=== PATIENT | female | born 1945 | race Caucasian/White ===

== ENCOUNTER → 2017-09-25 | Outpatient (CLI) | payer OTHER | LOC: FIMAGING 12:27 | PROVIDERS: ATTEND Internal Medicine | DX: Z12.31 Encounter for screening mammogram for malignant neoplasm of breast (principal) | CPT/HCPCS: G0202 ==

== ENCOUNTER → 2018-10-05 | Outpatient (CLI) | payer OTHER | LOC: FIMAGING 11:25 | PROVIDERS: ATTEND Neurological Surgery | DX: Z98.1 Arthrodesis status (principal); M41.86 Other forms of scoliosis, lumbar region; M43.16 Spondylolisthesis, lumbar region; M51.36 Other intervertebral disc degeneration, lumbar region ==

== ENCOUNTER → 2018-11-04 | Outpatient (CLI) | payer OTHER | LOC: BMCIMAGING 09:11 | PROVIDERS: ATTEND Internal Medicine | DX: Z12.31 Encounter for screening mammogram for malignant neoplasm of breast (principal); Z80.3 Family history of malignant neoplasm of breast ==

== ENCOUNTER 2018-12-01 05:04 | Inpatient (IN) | payer OTHER ==
[2018-12-01] MEDS ORDERED: morphINE SR 15 MG TAB PO ONE (05:59)
[2018-12-01] MEDS ORDERED: ceFAZolin 2 GM/DEXTROSE 100 ML IV ONE (05:59)
[2018-12-01] MEDS ORDERED: morphINE PF 0.2 MG in SYRINGE INTRATHECAL 1 SYR IT ONE (05:59)
[2018-12-01] MEDS ORDERED: ACETAMINOPHEN 500 MG TAB PO ONE (05:59)
[2018-12-01] MEDS ORDERED: GABAPENTIN 300 MG CAP PO ONE (05:59)
[2018-12-01] MEDS ORDERED: LIDOCAINE 1% 2 ML INJ ID PRN (06:02)
[2018-12-01] MEDS ORDERED: LR 1,000 ML IV ONE (06:02)
[2018-12-01] MEDS ORDERED: LIDOCAINE 1% 2 ML INJ ONE (06:06)
--- NOTE | 2018-12-01 06:19 | PDHPUP ---
History & Physical Update H&P update statement: This history and physical update is based on an assessment of the patient which was completed after admission or registration (within 24 hours), but prior to the surgery/procedure. H&P update: H&P reviewed & patient examined, no change in patient's condition since H&P completed (Consents signed and site marked. All questions answered. We will plan for right sided TLIFs for right sided leg pain. )
[2018-12-01] MEDS ORDERED: BACITRACIN 50,000 UNITS/10 ML SYR IRR ONE (06:45)
[2018-12-01] MEDS ORDERED: THROMBIN (BOVINE) 20,000 UNIT VIAL TP ONE (06:45)
[2018-12-01] MEDS ORDERED: CHLORHEXIDINE GLUC HIBICLENS 118 ML BTL TP ONE (06:45)
[2018-12-01] MEDS ORDERED: BUPIVACAINE 0.25% 30 ML SDV ONE (06:45)
[2018-12-01] MEDS ORDERED: CITRATE DEXTROSE SOLN 500 ML BAG ONE (06:46)
[2018-12-01] MEDS ORDERED: EPINEPHrine 1 MG/ML INJ ONE (06:46)
[2018-12-01] MEDS ORDERED: MIDAZOLAM 2 MG/2 ML VIAL IVP ONE (06:53)
--- NOTE | 2018-12-01 06:53 | PDANEPAE ---
ANE History of Present Illness L2/3/4 TLIF with instrumentation, HW removal ANE Past Medical History - Cardiovascular History Hx Hypertension: No Hx Arrhythmias: No Hx Chest Pain: No Hx Coronary Artery / Peripheral Vascular Disease: No Hx CHF / Valvular Disease: No Hx Palpitations: No Cardiovascular History Comment: BP tends to run low - Pulmonary History Hx COPD: No Hx Asthma/Reactive Airway Disease: No Hx Recent Upper Respiratory Infection: No Hx Oxygen in Use at Home: No Hx Sleep Apnea: Yes Sleep Apnea Screening Result - Last Documented: Positive Pulmonary History Comment: MAXIMILIAN - Neurologic History Hx Cerebrovascular Accident: No Hx Seizures: No Hx Dementia: No - Endocrine History Hx Diabetes: No - Renal History Hx Renal Disorders: No - Liver History Hx Hepatic Disorders: No - Neurological & Psychiatric Hx Hx Neurological and Psychiatric Disorders: Yes Neurological / Psychiatric History Comment: numbness to R leg R/T back issues - Cancer History Hx Cancer: No - Congenital Disorder History Hx Congenital Disorders: Yes Congenital History Comment: glaucoma - GI History GERD: mild Hx Gastrointestinal Disorders: Yes Gastrointestinal History Comment: acid reflux - Other Health History Other Health History: none - Chronic Pain History Chronic Pain: No - Surgical History Prior Surgeries: none in last 5 yrs. 2008 spinal sx ANE Review of Systems Review of systems is: negative Review of Systems: - Exercise capacity METS (RN): 4 METS ANE Patient History - Allergies Allergies/Adverse Reactions: No Known Allergies Allergy (Verified 11/09/18 14:48) - Home Medications Home medications: home medication list seen and reviewed Home Medications: Acetaminophen [Tylenol ES 500 mg (*)] 500 mg PO BID 11/02/18 [Last Taken 21:00] Acetamn/Diphenhydramine 500/25 [Tylenol PM (*)] 0.5 each PO HS 11/02/18 [Last Taken 11/30/18 21:00] Calcium Carbonate [Calcium] 1,000 mg PO DAILY 11/02/18 [Last Taken 11/19/18] Cholecalciferol Vit D3 [Vitamin D3 (*)] 1,000 units PO DAILY 11/02/18 [Last Taken 11/19/18] Herbals/Supplements -Info Only 1 ea PO DAILY 11/02/18 [Last Taken 11/19/18] Meloxicam [Mobic 15 mg] 15 mg PO HS 11/02/18 [Last Taken 11/18/18] Multivitamins [Multivitamin (*)] 1 each PO DAILY 11/02/18 [Last Taken 11/19/18] Ranitidine HCl [Zantac] 150 mg PO BID 11/02/18 [Last Taken 12/01/18 03:45] - NPO status NPO Status: no food or drink >8 hours NPO Since - Liquids (Date): 11/30/18 NPO Since - Liquids (Time): 21:00 NPO Since - Solids (Date): 11/30/18 NPO Since - Solids (Time): 20:30 - Anes Hx Anes Hx: no prior problems - Smoking Hx Smoking Status: Never smoked - Family Anes Hx Family Anes Hx: none Family Hx Anesthesia Complications: none ANE Labs/Vital Signs - Vital Signs Vital Signs: reviewed preoperatively; see RN documention for details Blood Pressure: 119/71 Heart Rate: 78 Respiratory Rate: 16 O2 Sat (%): 93 Height: 167.64 cm Weight: 68.039 kg ANE Physical Exam - Airway Neck exam: FROM Mallampati Score: Class 1 Mouth exam: normal dental/mouth exam - Pulmonary Pulmonary: no respiratory distress - Cardiovascular Cardiovascular: regular rate and rhythym - ASA Status ASA Status: II ANE Anesthesia Plan Anesthesia Plan: general endotracheal anesthesia
[2018-12-01] MEDS ORDERED: MIDAZOLAM 2 MG/2 ML VIAL ONE (07:02)
[2018-12-01] MEDS ORDERED: DEXAMETHASONE 4 MG/ML VIAL ONE (07:10)
[2018-12-01] MEDS ORDERED: LIDOCAINE 2% 100 MG/5 ML SYR ONE (07:10)
[2018-12-01] MEDS ORDERED: ROCURONIUM 50 MG/5 ML VIAL ONE (07:10)
[2018-12-01] MEDS ORDERED: HYDROmorphONE/DILAUDID 2 MG/ML INJ ONE (07:10)
[2018-12-01] MEDS ORDERED: ONDANSETRON 4 MG/2 ML VIAL ONE ×2 (07:10→12:17)
[2018-12-01] MEDS ORDERED: fentaNYL 100 MCG/2 ML INJ ONE (07:11)
[2018-12-01] MEDS ORDERED: PROPOFOL/EMULSION 500 MG/50 ML BOTTLE IV ONE (07:11)
[2018-12-01] MEDS ORDERED: PROPOFOL 200 MG/20 ML VIAL ONE (07:11)
[2018-12-01] MEDS ORDERED: REMIFENTANIL HCL 1 MG VIAL ONE (07:11)
[2018-12-01] MEDS ORDERED: diphenhydrAMINE 25 MG CAP PO PRN (07:33)
[2018-12-01] MEDS ORDERED: METHOCARBAMOL 750 MG TAB PO PRN (07:33)
[2018-12-01] MEDS ORDERED: MAGNESIUM HYDROXIDE 30 ML UDCUP PO PRN (07:33)
[2018-12-01] MEDS ORDERED: POLYETHYLENE GLYCOL 3350 17 GM PKT PO PRN (07:33)
[2018-12-01] MEDS ORDERED: LACTULOSE 20 GM/30 ML UDCUP PO PRN (07:33)
[2018-12-01] MEDS ORDERED: BISACODYL 10 MG SUPP PR PRN (07:33)
[2018-12-01] MEDS ORDERED: ONDANSETRON DISINTEGRATING 4 MG TAB PO PRN (07:33)
[2018-12-01] MEDS ORDERED: ePHEDrine SULFATE 25 MG/5 ML SYR ONE (07:53)
[2018-12-01] MEDS ORDERED: NON-FORMULARY NEW DRUG (Ranitidine Hcl [Zantac] 150 MG) PO SCH (09:00)
[2018-12-01] MEDS ORDERED: PROMETHAZINE HCL 25 MG/ML INJ IVP PRN (10:51)
[2018-12-01] MEDS ORDERED: NALOXONE HCL 0.4 MG/ML INJ IVP PRN ×2 (10:51→12:30)
[2018-12-01] MEDS ORDERED: DIAZEPAM 5 MG/ML 1 ML SYR IVP PRN (10:51)
[2018-12-01] MEDS ORDERED: fentaNYL 100 MCG/2 ML INJ IVP PRN (10:51)
[2018-12-01] MEDS ORDERED: HYDROmorphONE/DILAUDID 2 MG/ML INJ IVP PRN (10:51)
[2018-12-01] MEDS ORDERED: LABETALOL HCL 5 MG/ML 20 ML MDV IVP PRN (10:51)
[2018-12-01] MEDS ORDERED: oxyCODONE IR 5 MG TAB PO PRN (10:51)
[2018-12-01] MEDS ORDERED: MEPERIDINE 25 MG/0.5 ML AMP IVP PRN (10:51)
[2018-12-01] MEDS ORDERED: DEXAMETHASONE 4 MG/ML VIAL IVP PRN (10:51)
--- NOTE | 2018-12-01 10:51 | POSTANESTH ---
Post Anesthetic Evaluation Cardiovascular Status: Normal, Stable, Similar to Pre-Op Cond Respiratory Status: Normal, Stable, Similar to Pre-op Cond. Level of Consciousness/Mental Status: Can Participate in Eval, Mildly Sleepy, Arousable Pain Control: Adequate, Prn Tx Ordered Nausea/Vomiting Control: Adequate, Prn Tx Ordered Complications Possibly Related to Anesthesia: None Noted
--- NOTE | 2018-12-01 11:35 | PDMN ---
Medical Necessity Medical necessity: [facility] S820 Lumbaar Fusion, 3 days: 73 yo s/p L2/3/4 TLIF, L2-4 Lum [place], Posterior Fusion, L4/5 Hardware Exploration/Removal, IP Only
[2018-12-01] MEDS: ONDANSETRON 4 MG/2 ML VIAL IVP PRN ×4 (12:20→23:39)
--- NOTE | 2018-12-01 12:28 | POSTOPPROG ---
Post Op Note Date of Operation: 12/01/18 Surgeon: Davon Gaines [employer] Dispatcher: Shoshana Cooper NP Anesthesiologist: Kevin Anesthesia: GET(General Endotracheal) Pre-op Diagnosis: Lumbar stenosis Procedure: L4-5 hardware exploration/removal with L2-3 laminectomy and TLIF L2-3 , L3-4 Inf/Abcess present in the surg proc area at time of surgery?: No Depth: Deep Incisional (Fascial) EBL: 100-500 Total fluids administered: see anesthesia Complications: none Drains: James Mancia Date of Surgery: 12/01/18 Post Op Day: 0 Assessment/Plan: Assessment: 73 yr old s/p L4-5 hardware exploration/removal with TLIF L2-3, L3-4 , PSF L2-4 Plan: -Admit med surg -Pain management, patient received IT duramorph intra op -ARIE to bulb suction -PT/OT -Post op xrays in am -Please call neurosurg with questions/concerns Subjective: waking up in pacu Objective: waking up in pacu PERRLA No facial droop MAEx4 5/5 ble, bue Sensation intact to light touch BLE ARIE patent Dressing CDI Appropriate Neuro Check Frequency Ordered: Yes
[2018-12-01] MEDS: SENNOSIDES/DOCUSATE SODIUM TAB PO SCH ×2 (14:47→22:42)
[2018-12-01] MEDS: FAMOTIDINE 20 MG TAB PO SCH ×2 (14:47→22:42)
[2018-12-01] MEDS: ACETAMINOPHEN 500 MG TAB PO SCH ×2 (14:52→22:41)
--- NOTE | 2018-12-01 15:26 | GOP ---
[f rep st] OPERATIVE REPORT DATE OF OPERATION: 12/01/2018 SURGEON: Davon Gaines MD BROACHING MACHINE REPAIRER: Shoshana Cooper NP. ANESTHESIA: General. PREOPERATIVE DIAGNOSIS: 1. L2-L3, L3-L4 severe spondylosis with history of a prior fusion L4-L5. 2. Severe spinal stenosis L3-L4. 3. Treatment refractory to nonoperative intervention. 4. Right lower extremity radiculopathy. POSTOPERATIVE DIAGNOSIS: 1. L2-L3, L3-L4 severe spondylosis with history of a prior fusion L4-L5. 2. Severe spinal stenosis L3-L4. 3. Treatment refractory to nonoperative intervention. 4. Right lower extremity radiculopathy. PROCEDURE PERFORMED: 1. Posterior arthrodesis with approach to L2, L3, and L4. 2. Posterolateral fusion with bilateral pedicle screw placement into L2, L3, and L4 from the Singly Solera 4.75 system. 3. Exploration of prior lumbar hardware on the right L4 and L5 with subsequent removal from the [employer] X system. 4. Posterolateral fusion on the left between L2 and L4 with morselized autograft and allograft. 5. Decompressive laminectomy with right-sided facetectomies, L2-L3 and L3-L4. 6. Right-sided L2-3 transforaminal lumbar interbody fusion with an 8 x 26 mm titanium coated PEEK cage filled with morselized autograft and allograft. 7. Right-sided L3-L4 transforaminal lumbar interbody fusion with an 8 x 26 mm titanium coated PEEK cage with morselized autograft and allograft. 8. Use of intraoperative 3D navigation. 9. Use of intraoperative fluoroscopy, less than 1 hour physician time. 10. Use of neuromonitoring. 11. Use of the operative microscope. 12. Injection of preservative-free intrathecal narcotics. FINDINGS: per imaging SPECIMENS: None. ESTIMATED BLOOD LOSS: 250 mL. INDICATIONS: The patient is a very pleasant woman who presented to my office with worsening low back pain and right lower extremity radiculopathy. Imaging demonstrated severe spondylosis L2 through L4 with severe spinal stenosis at the L3-4 level. She had a prior history of fusion at L4-5. After discussion of the risks, benefits, and treatment alternatives and after failing nonoperative interventions, we decided to proceed forth with surgery as described above. DESCRIPTION OF PROCEDURE: The patient was brought to the operating theater and underwent general endotracheal anesthesia without complications. She had Venodynes, CARLOS ALBERTO hose, and the appropriate lines placed by Anesthesia. She was flipped prone onto the James table. All bony processes inspected and padded. The lower lumbar region was prepped and draped in usual sterile surgical fashion. A time-out was completed per protocol. The patient received antibiotics within 1 hour of incision. Using lateral fluoroscopy and a spinal needle, we picked our entry point at the L2 through L4 levels. This was marked in the midline. The incision was infiltrated with Marcaine with epinephrine. The incision was taken down with the scalpel blade and using monopolar, taken down to midline through the lumbodorsal fascia. A subperiosteal dissection was carried out to the L2, L3, and L4 levels. We encountered the hardware on the right side at the L4 level and continued down on the right side L4-L5. We sequentially removed the cap screws from the L4-L5 levels as well as the right side of the donna and passed it off the field. We explored the hardware and noticed that she was solidly fused. We then sequentially removed the right-sided L4 and L5 screws from the Nu[employer]asive System. We then replaced the L4 right-sided screw with a 6.5 x 45 mm Medtronic 4.75 Solera screw. We attached the 3D Stealth navigation clamp to the spinous process of L4 and completed a 3D navigation spin. Using 3D navigation, we placed the photogrammetry airplane pilot holes for the bilateral pedicle screws in L2, L3 , and left-sided L4. All holes were manually palpated with no evidence of cortical breaches. We then tapped and placed 5.5 x 50 mm screws bilaterally in L2, 6.5 x 50 mm screws bilaterally in L3, and left-sided L4, all from the Medtronics Solera 4.75 system. Another 3D Stealth navigation spin demonstrated good placement of the hardware. At this point, the microscope was brought into the field to assist with microscopic dissection and to maintain illumination and magnification. Using a combination of the bur tip on the drill bit, Kerrison punches, and Leksell rongeur, we completed a decompressive laminectomy with bilateral medial facetectomies at L2-L3 and L3-L4. We completed aggressive facetectomies on the right side at L2-L3, L3-L4. Went up to the L2-3 level. We distracted the interspace and completed a right-sided L2-L3 diskectomy. We prepared the cartilaginous endplates and measured the interbody space. We placed an 8 x 26 mm titanium coated PEEK cage filled with morselized autograft and allograft anteriorly and towards the midline. We packed additional morcellized autograft into the disk space for the interbody fusion. We let down the distraction and moved down to the L3-4 level. We distracted the disk space and completed a right L3-4 diskectomy. We prepared the cartilaginous endplates and measured interbody space. We then placed an 8 x 26 mm titanium coated PEEK cage filled with morselized autograft and allograft anterior towards the midline. We packed additional morcellized autograft in the disk space for the interbody fusion. We let down the distraction and decorticated the bone on the left side between L2 and L4. We placed 2 lordotic rods into the heads of the screws between L2 and L4 and secured them down with cap screws which were tightened per historic site administrator's setting. We injected preservative-free intrathecal narcotics. We placed morselized autograft and allograft on the left side between L2 and L4 for the posterolateral fusion. A drain was left in the subfascial space. The wound was irrigated copiously with bacitracin irrigation and closed in multiple layers including Vicryl sutures deep layers and Dermabond for the skin. The patient's wounds were dressed sterilely. She was then flipped supine onto the transfer cart. She was awakened, extubated, and taken to the recovery room in stable condition. There were no complications and no noted changes on neuromonitoring throughout the procedure. COMPLICATIONS: None.. /[id number]/MODL MTDD
[2018-12-01] MEDS ORDERED: SCOPOLAMINE HYDROBROMIDE 1 MG/3 DAYS PATCH TD ONE (15:31)
[2018-12-01] MEDS: NS 1,000 ML IV SCH (16:22)
[2018-12-01] MEDS: ceFAZolin 2 GM/DEXTROSE 100 ML IV SCH ×2 (16:22→23:35)
[2018-12-02] MEDS: NS 1,000 ML IV SCH ×2 (04:10→11:12)
[2018-12-02] MEDS: ACETAMINOPHEN 500 MG TAB PO SCH ×3 (05:03→21:24)
[2018-12-02 05:25] LABS: PLATELET COUNT 184 10^3/uL (150-400)
--- NOTE | 2018-12-02 07:57 | SOAPPROG ---
SOAP Progress Note Assessment/Plan: Assessment: 73 yo female POD #1 sp L2-4 fusion. Pain well controlled No new neuro changes BP low this AM, pt asymptomatic Plan: will bolus with 500ml NS. Follow BP CPM with PT/OT Continue ARIE LSO when OOB xrays today to evaluate hardware Subjective: Awake, alert. Feeling good this AM with good pain control. Had nausea w emesis last night. Has scopalamine patch and feeling fine now. Denies new numbness, tingling or weakness Objective: Vital Signs Temp Pulse Resp BP Pulse Ox 37.0 C 66 16 83/39 L 97 12/02/18 07:48 12/02/18 07:48 12/02/18 07:48 12/02/18 07:48 12/02/18 07:48 Laboratory Results 12/02/18 05:00 12/02/18 05:00 12/01/18 12/02/18 12/03/18 05:59 05:59 05:59 Intake Total 2650 Output Total 1875 Balance 775 Dressing : CDI ARIE: 140 Neuro: CHEN, sens + LT ICD10 Worksheet Patient Problems: Problems Problem Status Onset Degenerative disc disease, lumbar Acute - ICD10 Problem Qualifiers (1) Degenerative disc disease, lumbar
[2018-12-02] MEDS: FAMOTIDINE 20 MG TAB PO SCH ×2 (08:18→20:01)
[2018-12-02] MEDS: SENNOSIDES/DOCUSATE SODIUM TAB PO SCH ×2 (08:18→20:01)
[2018-12-02] MEDS: ENOXAPARIN 40 MG/0.4 ML SYR SC SCH (08:19)
[2018-12-02] MEDS ORDERED: NS 500 ML IV ONE ×2 (08:30→09:30)
[2018-12-02] MEDS: METHOCARBAMOL 500 MG TAB PO PRN ×2 (11:00→21:25)
[2018-12-02] MEDS: traMADol 50 MG TAB PO PRN ×2 (12:26→19:45)
--- NOTE | 2018-12-02 15:27 | ASMTCMCOM ---
CM Note CM Note Notes: Pt had planned back surgery, resides alone. OT rec home/HHC/SNF. [facility] inpatient rehab consult order is in. Met with pt, brother and dghtr for d/c planning: If SNF is rec, choices are [facility] and [facility], referrals sent in Allscripts. CM to follow. Date Signed: 12/02/2018 03:24 PM Electronically Signed By:EVELIN Clayton
[2018-12-02] MEDS ORDERED: PATCH REMOVAL 1 EA PATCH TD ONE (15:32)
[2018-12-02] MEDS: oxyCODONE IR 5 MG TAB PO PRN (21:25)
[2018-12-03] MEDS: NS 1,000 ML IV SCH (00:13)
[2018-12-03] MEDS: ACETAMINOPHEN 500 MG TAB PO SCH ×3 (05:55→21:15)
[2018-12-03] MEDS: oxyCODONE IR 5 MG TAB PO PRN ×2 (05:55→09:33)
--- NOTE | 2018-12-03 09:06 | NEUSURGPN ---
Assessment/Plan: Assessment: 73 yo female POD #2 sp L2-4 fusion Plan: Will reorder Scopolamine for continue nausea. Discussed increasing bowel regiment CPM with PT/OT Continue ARIE, may d/c later today if output tapers LSO when OOB xrays demonstrates intact hardware without evidence of failure DVT prophx: TEDs, SCDs, lovenox Seen by Dr. Gaines and myself Please notify NS with any change in neuro/motor exam Subjective: increase in nausea this am, pain tolerable with medications Objective: NAD A&Ox3 MAEx4 5/5 and equal in BUE and BLE. Incision c/d/i. ARIE drain serosanginous - Physician Patient Seen by Dr.: [facility] Physical Exam - Vitals, I&O, Labs I and O 12/02/18 12/03/18 12/04/18 05:59 05:59 05:59 Intake Total 2650 3093 Output Total 1875 4315 Balance 775 -1222 Weight 68.039 kg Intake: Oral (ml) 200 1200 IV Intake (ml) 2200 IV Infused (ml) 250 1893 Ns 1,000 ml @ 100 mls/hr 893 IV CONT SVETA Rx#: [id number] Ns 1,000 ml @ 75 mls/hr 135 IV CONT SVETA Rx#: [id number] Ns 500 ml @ As Directed 500 IV ONCE ONE Rx#: [id number] Ns 500 ml @ Wide Open IV 500 ONCE ONE Rx#:[id number] ceFAZolin 2 GM/DEXTROSE 115 100 ml @ 200 mls/hr IV Q8H [facility] Rx#:[id number] Output: Urine (ml) 1225 4075 Bedside Commode 400 Catheter 1225 Toilet 3675 Estimated Blood Loss (ml) 250 ARIE Drain Output (ml) 400 240 #1 Left Back James 400 240 Mancia Other: Intake Quantity Yes Sufficient Number of Voids Bedside Commode 1 Toilet 1 Number of Emesis 3 Occurrences Vital Signs Temp Pulse Resp BP Pulse Ox 36.8 C 74 18 109/49 L 92 12/03/18 08:00 12/03/18 04:00 12/03/18 08:00 12/03/18 08:24 12/03/18 04:00 Laboratory Results 12/02/18 05:00 12/02/18 05:00 ICD10 Worksheet Patient Problems: Problems Problem Status Onset Degenerative disc disease, lumbar Acute
[2018-12-03] MEDS: METHOCARBAMOL 500 MG TAB PO PRN ×2 (09:28→17:10)
[2018-12-03] MEDS: ENOXAPARIN 40 MG/0.4 ML SYR SC SCH (09:34)
[2018-12-03] MEDS: FAMOTIDINE 20 MG TAB PO SCH ×2 (09:34→21:15)
[2018-12-03] MEDS ORDERED: SCOPOLAMINE HYDROBROMIDE 1 MG/3 DAYS PATCH TD SCH (09:45)
[2018-12-03] MEDS: traMADol 50 MG TAB PO PRN ×2 (14:00→21:14)
[2018-12-03] MEDS: SENNOSIDES/DOCUSATE SODIUM TAB PO SCH ×2 (14:02→21:14)
--- NOTE | 2018-12-03 16:10 | ASMTCMCOM ---
CM Note CM Note Notes: [facility] inpatient rehab awaiting further therapy input. Pt accepted at [facility] pending bed availability at d/c, [facility] available. CM to follow. Date Signed: 12/03/2018 04:10 PM Electronically Signed By:EVELIN Clayton
[2018-12-04] MEDS: METHOCARBAMOL 500 MG TAB PO PRN ×3 (02:37→13:35)
[2018-12-04] MEDS: oxyCODONE IR 5 MG TAB PO PRN ×3 (02:37→15:39)
[2018-12-04] MEDS: ACETAMINOPHEN 500 MG TAB PO SCH ×2 (05:18→13:35)
[2018-12-04] MEDS: traMADol 50 MG TAB PO PRN ×2 (08:37→14:49)
[2018-12-04] MEDS: SENNOSIDES/DOCUSATE SODIUM TAB PO SCH (08:38)
[2018-12-04] MEDS: FAMOTIDINE 20 MG TAB PO SCH (08:38)
[2018-12-04] MEDS: ENOXAPARIN 40 MG/0.4 ML SYR SC SCH (08:39)
--- NOTE | 2018-12-04 09:13 | NEUSURGPN ---
Assessment/Plan: Assessment: 73 yo female POD #3 sp L2-4 fusion Plan: Continue Scopolamine for continue nausea. Discussed increasing bowel regiment CPM with PT/OT Continue ARIE, may d/c around noon LSO when OOB xrays demonstrates intact hardware without evidence of failure DVT prophx: TEDs, SCDs, lovenox Discussed with Dr. Gaines If has BM and improving today, can d/c to rehab this afternoon Please notify NS with any change in neuro/motor exam Subjective: Nausea improved. Passing gas, but not having a bowel movement Objective: NAD A&Ox3 MAEx4 5/5 and equal in BUE and BLE. Incision c/d/i. ARIE drain serosanguineous - Physician Discussed Patient with : [facility] Physical Exam - Vitals, I&O, Labs I and O 12/03/18 12/04/18 12/05/18 05:59 05:59 05:59 Intake Total 3093 550 Output Total 4315 1440 350 Balance -1222 -890 -350 Intake: Oral (ml) 1200 550 IV Infused (ml) 1893 Ns 1,000 ml @ 100 mls/hr 893 IV CONT SVETA Rx#: [id number] Ns 500 ml @ As Directed 500 IV ONCE ONE Rx#: [id number] Ns 500 ml @ Wide Open IV 500 ONCE ONE Rx#:[id number] Output: Urine (ml) 4075 1350 350 Bedside Commode 400 Toilet 3675 1350 350 ARIE Drain Output (ml) 240 90 #1 Left Back James 240 90 Mancia Other: Intake Quantity Yes Sufficient Output Comment Toilet Pt missed hat Number of Voids Bedside Commode 1 Toilet 1 1 1 Vital Signs Temp Pulse Resp BP Pulse Ox 36.8 C 59 L 16 100/59 L 93 12/04/18 08:00 12/04/18 08:00 12/04/18 08:00 12/04/18 08:00 12/04/18 08:00 Laboratory Results 12/02/18 05:00 12/02/18 05:00 ICD10 Worksheet Patient Problems: Problems Problem Status Onset Degenerative disc disease, lumbar Acute
[2018-12-04 10:17] LABS: PLATELET COUNT 193 10^3/uL (150-400)
[2018-12-04] MEDS ORDERED: NS 500 ML IV ONE (10:30)
--- NOTE | 2018-12-04 13:44 | PDIAF ---
- Diagnosis Code Status: Full Code - Medication Management Discharge Medications: electronically signed and located in the Home Medication List. - Orders Services needed: Registered Nurse, Physical Therapy, Occupational Therapy Diet Recommendation: no restrictions on diet - Follow Up Care Current Providers and Referrals: Eliseo Pop MD [Primary Care Provider] -
[2018-12-04 15:43] VITALS: BP 118/61
--- NOTE | 2018-12-04 16:05 | ASMTLACE ---
LACE Length of stay for Answers: 4-6 days current admission Acuity / Level of Answers: Yes Care: Did the patient have an inpatient admission? # of Emergency department Answers: 0 visits in the last 6 months Score: 7 Date Signed: 12/04/2018 04:03 PM Electronically Signed By:EVELIN Clayton
--- NOTE | 2018-12-04 16:07 | ASMTCMCOM ---
CM Note CM Note Notes: Pt medically stable for d/c to [facility], orders sent in Allscripts. ROMANA Callejas to call report. WC transport scheduled by Carol at [facility] for 1615. Pt to update family. Date Signed: 12/04/2018 04:06 PM Electronically Signed By:EVELIN Clayton
--- NOTE | 2018-12-04 16:31 | ASDISCHSUM ---
Discharge Information Plan Status:SNF Medically Cleared to Leave: Discharge Date:12/04/2018 04:06 PM CM D/C Disposition: ADT D/C Disposition:Group Home Facility Projected Discharge Date:12/04/2018 11:00 AM Transportation at D/C: Discharge Delay Reason: Follow-Up Date:12/04/2018 11:00 AM Discharge Slot: Final Diagnosis: Placement Information Referral Type:*Longterm/SNF Referral ID:[id number] Provider Name:[facility] Address 1:[address] Address 2: City:[place] Selection Factors: State:[place] Patient Contact Information Contact Name:MEGHAN Relationship:Friend Address: Home Phone: City: [facility] Phone: [facility] Code: Email: Financial Information Financial Class:Medicare Primary Plan Desc:MEDICARE INPATIENT Primary Plan Number:[id number] Secondary Plan Desc:[facility] [employer] Secondary Plan Number:[id number] Assessment Information LACE LACE Length of stay for Answers: 4-6 days current admission Acuity / Level of Answers: Yes Care: Did the patient have an inpatient admission? # of Emergency department Answers: 0 visits in the last 6 months Score: 7 Date Signed: 12/04/2018 04:03 PM Electronically Signed By:EVELIN Clayton [facility] CM Progress Note CM Note CM Note Notes: Pt had planned back surgery, resides alone. OT rec home/HHC/SNF. [facility] inpatient rehab consult order is in. Met with pt, brother and dghtr for d/c planning: If SNF is rec, choices are [facility] and [facility], referrals sent in Allscripts. CM to follow. Date Signed: 12/02/2018 03:24 PM Electronically Signed By:EVELIN Clayton [facility] CM Progress Note CM Note CM Note Notes: [facility] inpatient rehab awaiting further therapy input. Pt accepted at [facility] pending bed availability at d/c, [facility] has no bed available. CM to follow. Date Signed: 12/03/2018 04:10 PM Electronically Signed By:EVELIN Clayton [facility] CM Progress Note CM Note CM Note Notes: Pt medically stable for d/c to [facility], orders sent in Allscripts. ROMANA Callejas to call report. WC transport scheduled by Carol at [facility] for 161. Pt to update family. Date Signed: 12/04/2018 04:06 PM Electronically Signed By:EVELIN Clayton Intervention Information Intervention Type:*IM-Signed Date of Service:12/04/2018 02:41 PM Patient Type:Inpatient Staff Member:Katerina Jimenez Hours: Discipline: Severity: Comment:
[2018-12-06] MEDS ORDERED: PATCH REMOVAL 1 EA PATCH TD SCH (09:45)
== END 2018-12-04 16:06 | DRG 455 ==
LOC: F3N 05:04
PROVIDERS: ADMIT Neurological Surgery; ATTEND Neurological Surgery
DX: M48.062 Spinal stenosis, lumbar region with neurogenic claudication (principal); M47.26 Other spondylosis with radiculopathy, lumbar region; R73.01 Impaired fasting glucose; G47.33 Obstructive sleep apnea (adult) (pediatric); M19.90 Unspecified osteoarthritis, unspecified site; Z99.89 Dependence on other enabling machines and devices; Z98.1 Arthrodesis status
CPT/HCPCS: 97116-GP; 97162-GP; 97166-GO; 97535-GO; C1713; J0171; J0690; J1100; J1170; J1650; J2001; J2250; J2274; J2405; J2704; J3010

== ENCOUNTER → 2019-01-19 | Outpatient (CLI) | payer OTHER | LOC: FIMAGING 09:00 | PROVIDERS: ATTEND Nurse Practitioner | DX: Z09 Encounter for follow-up examination after completed treatment for conditions other than malignant neoplasm (principal); Z98.1 Arthrodesis status; S32.010A Wedge compression fracture of first lumbar vertebra, initial encounter for closed fracture; M51.37 Other intervertebral disc degeneration, lumbosacral region; M41.86 Other forms of scoliosis, lumbar region ==

== ENCOUNTER → 2019-02-17 | Outpatient (CLI) | payer OTHER | LOC: FIMAGING 08:41 | PROVIDERS: ATTEND Nurse Practitioner | DX: Z09 Encounter for follow-up examination after completed treatment for conditions other than malignant neoplasm (principal); Z98.1 Arthrodesis status; M47.896 Other spondylosis, lumbar region; M51.37 Other intervertebral disc degeneration, lumbosacral region ==